=== PATIENT | male | born 1965 ===

== ENCOUNTER 2018-12-15 07:08 | Inpatient (IN) | payer OTHER ==
[~2018-12-15] VITALS: Ht 165.1 cm; Wt 72.6 kg
[2018-12-15] MEDS ORDERED: FORTAMET500 MG (07:18)
[2018-12-15] MEDS ORDERED: ASA325 MG (07:18)
[2018-12-15] MEDS ORDERED: LEVAQUIN500 MG (07:19)
--- NOTE | 2018-12-15 07:23 | NUR ---
SE RECIBE PTE ALERTA Y ORIENTADO X 3 ESFERAS, REFIERE CELULITIS EN PIERNA LT. SE OBSERVA TOBILLO Y PIE INFLAMADO CON ERITEMA EN PARTE POSTERIOR DE LA PIERNA, DEDOS DEL PIE NECROTICOS. PTE INDICA COMENZO CON DOLOR EN LA PANTORRILLA HACE 6 DIAZ, RECIBIO TX JAMES NO STEPHENS ZUNILDA. SE UBICA EN AREA DE OBSERVACION.
--- NOTE | 2018-12-15 08:42 | NUR ---
PTE EVALUADO POR EL DR RUBIN QUIEN ORDENA EL TX. MS B SUDARSHAN ORIENTA SOBRE EL MISMO, LO CUAL REFIERE ENTENDER Y REALIZA PRUEBAS DE LABORATORIO RGEGIE ORDEN MEDICA Y SIGUIENDO MEDIDAS ASEPTICAS.
[2018-12-17] MEDS ORDERED: XARELTO15 MG PO (14:13)
[2018-12-17] MEDS ORDERED: FORTAMET500 MG PO (14:13)
== END 2018-12-17 14:35 | disposition home or self-care (01) | DRG 294 ==
LOC: ER 07:08 → SEC-K 19:28 → MEDJ 19:28
PROVIDERS: ADMIT Internal Medicine
PROC: B54CZZZ Ultrasonography of Left Lower Extremity Veins (ICD-10-PCS; principal; 2018-12-15)
DX: I80.222 Phlebitis and thrombophlebitis of left popliteal vein (principal); L03.116 Cellulitis of left lower limb; E11.628 Type 2 diabetes mellitus with other skin complications; E11.65 Type 2 diabetes mellitus with hyperglycemia; Z79.4 Long term (current) use of insulin; Z79.01 Long term (current) use of anticoagulants

== ENCOUNTER 2019-11-06 04:12 | Emergency (ER) | payer OTHER ==
[~2019-11-06] VITALS: Ht 167.6 cm; Wt 88.5 kg
[~2019-11-06 04:12] MED LIST: ASA325 MG; FORTAMET500 MG; FORTAMET500 MG PO; LEVAQUIN500 MG; XARELTO15 MG PO
[2019-11-06] MEDS ORDERED: CRESTOR5 MG (04:33)
== END 2019-11-06 09:27 | disposition home or self-care (01) ==
LOC: ER 04:12
DX: S05.11XA Contusion of eyeball and orbital tissues, right eye, initial encounter (principal); W01.198A Fall on same level from slipping, tripping and stumbling with subsequent striking against other object, initial encounter; Y93.89 Activity, other specified; Y92.018 Other place in single-family (private) house as the place of occurrence of the external cause; Y99.8 Other external cause status